=== PATIENT | male | born 1955 | race Caucasian/White ===

== ENCOUNTER 2020-06-10 18:36 | Emergency (ER) | payer OTHER ==
[~2020-06-10 18:36] MED LIST: CALCIUM CHLORIDE 100 MG/ML 10 ML SYRINGE ONE; EPINEPHrine 10 ML SYRINGE (0.1 MG/ML) ONE; SODIUM BICARB 8.4% 50 ML SYR (1 MEQ/ML) ONE
[2020-06-10] MEDS ORDERED: SODIUM CHLORIDE 0.9% 1,000 ML IV ONE (18:45)
[2020-06-10] MEDS ORDERED: NOREPINEPHRINE 4 MG in SODIUM CHLORIDE 0.9% 250 ML IV ONE ×3 (18:50→20:45)
[2020-06-10 18:56] VITALS: TEMP 97
[2020-06-10 19:03] LABS: Basophils # (A) 0.1 k/uL (0-0.2); Basophils % (A) 1 %; Eosinophils % (A) 1 %; HCT 47.1 % (39.0-53.0); HGB 14.4 gm/dL (13.0-17.5); Hypochromasia Marked; Lymphocytes # (A) 2.7 k/uL (1.0-4.8); Lymphocytes % (A) 58 %; MCH 36.3 pg (25.0-35.0); MCHC 30.5 g/dL (31.0-37.0); MCV 118.9 fL (80.0-100.0); Macrocytosis Marked; Mean Platelet Volume 8.3; Monocytes # (A) 0.1 k/uL (0-1.0); Monocytes % (A) 3 %; Neutrophils # (A) 1.6 k/uL (1.3-7.7); Neutrophils % (A) 35 %; Platelet Count 154 k/uL (150-450); RBC 3.96 m/uL (4.30-5.90); RDW 13.6 % (11.5-15.5); WBC 4.6 k/uL (3.8-10.6)
--- NOTE | 2020-06-10 19:18 | XR ---
EXAMINATION TYPE: XR chest 1V portable DATE OF EXAM: 06/10/2020 COMPARISON: NONE HISTORY: Cardiac arrest. Tube placement. TECHNIQUE: Single view FINDINGS: Endotracheal tube is 2.5 cm from the joseph. There is nasogastric tube in the stomach. Ther e is some interstitial infiltrate in atelectasis in the lower lung merida. There is no gross heart fa ilure. Thoracic aorta is atheromatous. Bony thorax is intact. IMPRESSION: Interstitial pulmonary infiltrates and atelectasis. No obvious heart failure. Tubing in f airly good position. There is probably cardiomegaly.
[2020-06-10 19:21] LABS: Partial Thromboplastin Time 34.6 sec (22.0-30.0); Prothrombin Time 10.5 sec (9.0-12.0)
--- NOTE | 2020-06-10 19:21 | ED ---
CPR HPI - General Stated Complaint: Cardiac Arrest Time Seen by Provider: 06/10/20 18:44 Source: EMS Mode of arrival: EMS Limitations: altered mental status - History of Present Illness Initial Comments: Is a 65-year-old male with history of hypertension who presents after cardiac arrest. The patient was reportedly at home with his eating dinner when he suddenly vomited and became unresponsive. EMS was called and revived therefore minutes after the call. They noted that he had no pulses and immediately began CPR. They did achieve Rosc in route after 4 doses of epinephrine and intubation. They did note that the patient had some steak stuck in the back of his throat. On arrival to the emergency department patient lost pulses again and CPR was started. He was given 1 dose of epinephrine, bicarbonate, and calcium gluconate with Rosc. Patient was started on levophed and maintained on the ventilator. - Related Data Home Medications Medication Instructions Recorded Confirmed ALPRAZolam [Xanax] 1 mg PO DAILY 05/07/17 05/11/17 Bisoprolol-Hctz 5-6.25 mg [Ziac 2 each PO BID 05/07/17 05/11/17 5-6.25] lisinopriL [Zestril] 20 mg PO DAILY 05/07/17 05/11/17 Allergies Allergy/AdvReac Type Severity Reaction Status Date / Time venom-honey bee Allergy Severe Anaphylaxis Verified 06/10/20 18:56 [bee venom (honey bee)] venom-wasp [wasp venom] Allergy Severe Anaphylaxis Verified 06/10/20 18:56 latex Allergy Rash/Hives Verified 06/10/20 18:56 elza nuts Allergy Severe Anaphylaxis Uncoded 06/10/20 18:56 Review of Systems ROS Statement: Those systems with pertinent positive or pertinent negative responses have been documented in the HPI. ROS Other: All systems not noted in ROS Statement are negative. Past Medical History Past Medical History: Hypertension Additional Past Medical History / Comment(s): hernia History of Any Multi-Drug Resistant Organisms: None Reported Past Surgical History: Adenoidectomy, Hernia Repair, Tonsillectomy Additional Past Surgical History / Comment(s): COLONOSCOPY Past Anesthesia/Blood Transfusion Reactions: No Reported Reaction Past Psychological History: Anxiety Smoking Status: Unknown if ever smoked Past Alcohol Use History: Occasional Past Drug Use History: None Reported - Past Family History Father Family Medical History: Congestive Heart Failure (CHF) General Exam - General Exam Comments Initial Comments: Constitutional: Unresponsive Head: Normocephalic atraumatic Eyes: no conjunctival injection No scleral icterus pupils are fixed and dilated, no doll's eyes Neck: No JVD Supple Heart: Regular rate rhythm normal S1-S2 no murmurs Lungs: Clear to auscultation and equal bilaterally No wheezing No rales Abdomen: Soft nondistended nontender Extremities: Non edematous DP pulses intact Radial pulses intact Neuro: Unresponsive on the ventilator No focal neurologic deficits Limitations: altered mental status Course Vital Signs 06/10/20 06/10/20 06/10/20 18:36 18:40 18:45 Temperature 97 F L Pulse Rate 78 89 79 Respiratory 12 13 Rate Blood Pressure 53/39 105/78 69/40 O2 Sat by Pulse 98 97 Oximetry 06/10/20 06/10/20 06/10/20 18:50 19:00 19:10 Temperature Pulse Rate 94 83 86 Respiratory Rate Blood Pressure 101/57 62/45 62/45 O2 Sat by Pulse 96 Oximetry 06/10/20 06/10/20 06/10/20 19:33 19:41 19:44 Temperature Pulse Rate 86 89 82 Respiratory 16 20 20 Rate Blood Pressure 81/54 99/76 108/54 O2 Sat by Pulse 96 97 97 Oximetry 06/10/20 06/10/20 06/10/20 20:00 20:59 21:29 Temperature Pulse Rate 67 76 71 Respiratory 24 18 20 Rate Blood Pressure 98/84 66/50 64/41 O2 Sat by Pulse 97 97 95 Oximetry 06/10/20 21:55 Temperature Pulse Rate 0 L Respiratory 0 L Rate Blood Pressure 79/46 O2 Sat by Pulse 0 L Oximetry - Reevaluation(s) Reevaluation #1: Spoke with and stated that patient was not responsive and has fixed dilated pupils and showing signs of severe brain injury. She agreed to make him DNR in the event that he codes again. 06/10/20 19:20 Reevaluation #2: Pt currently on 1mcg/kg of Levo. BP in low 100s. Repeat ekg looks improved. Pt does attempt to initiate breath at times but has no gag. No vestubloocular reflex. Pupils still fixed and dilated. I told about patient's prognosis and she stated he would not want to live on a ventilator however since he was sh owing some sign of improvement she wanted to leave him on ventilator and levo until morning. Discussed lines and she stated she did not want to escalate care at this time. The patient is still DNR if he has another arrest. 06/10/20 19:56 Reevaluation #3: INitial EKG done shows HR of [address] segement depression and global ischemic changes. 2nd EKG showing RBBB and sinus tachycardia. Again with global ischemic changes. EKG done at 1951 showing sinus rhythm with rate in the 80s. No abrnoaml ST segment changes or TWI. 06/10/20 20:01 Reevaluation #4: 06/10/20 20:[address] Arellano about patient and discussed plan of care with him. No escalation of care and DNR. Pt attempting more frequent breaths but still unresponsive. Reevaluation #5: 06/10/20 20:[address] Montiel about patient and he stated likely the patient would not do well. Stated he would speak with again about comfort measures. I called the 's sister who is on the way to the 's house now and will call back. Medical Decision Making - Medical Decision Making 2104 Spoke with wifes sister again who stated that they agreed and wanted the patient comfort measures only. The patient was extubated and levophed was stopped. He had agonal respirations only. Dr. Arellano updated. 2158 Called to room because patient was noted to be in asystole. Pupils fixed and dilated. Absent heart sounds. No response to noxious stimuli. Pt pronounced at 2200. Family updated. This is a 65-year-old male who presented for cardiac arrest. Ross Was obtained and the patient was maxed on Levaquin 5. I had multiple discussions with the and initially we agreed to keep him on the ventilator and levo fed until morning to see if he gained any brain function however given his multiple abnormal lab findings, persistent absent brainstem reflexes, low blood pressure despite levo fed I had another discussion with her and she agreed with comfort measures. The patient will have withdrawal of care at this time and be made comfortable. I did speak with Dr. Arellano earlier however this was prior to patient being made comfort measures. Dr. Arellano was updated. Pt ultimated expir ed at 2200. - Lab Data Result diagrams: 06/10/20 18:24 06/10/20 18:24 Lab Results 06/10/20 06/10/20 06/10/20 Range/Units 18:24 18:24 18:24 WBC 4.6 (3.8-10.6) k/uL RBC 3.96 L (4.30-5.90) m/uL Hgb 14.4 (13.0-17.5) gm/dL Hct 47.1 (39.0-53.0) % MCV 118.9 H (80.0-100.0) fL MCH 36.3 H (25.0-35.0) pg MCHC 30.5 L (31.0-37.0) g/dL RDW 13.6 (11.5-15.5) % Plt Count 154 (150-450) k/uL MPV 8.3 Neutrophils % 35 % Lymphocytes % 58 % Monocytes % 3 % Eosinophils % 1 % Basophils % 1 % Neutrophils # 1.6 (1.3-7.7) k/uL Lymphocytes # 2.7 (1.0-4.8) k/uL Monocytes # 0.1 (0-1.0) k/uL Eosinophils # 0.0 (0-0.7) k/uL Basophils # 0.1 (0-0.2) k/uL Hypochromasia Marked Macrocytosis Marked A PT 10.5 (9.0-12.0) sec INR 1.0 (<1.2) APTT 34.6 H (22.0-30.0) sec Sample Site ABG pH (7.35-7.45) ABG pCO2 (35-45) mmHg ABG pO2 (83-108) mmHg ABG HCO3 (21-25) mmol/L ABG Total CO2 (19-24) mmol/L ABG O2 Saturation (94-97) % ABG Base Excess mmol/L Niko Test FiO2 % Sodium (137-145) mmol/L Potassium (3.5-5.1) mmol/L Chloride (98-107) mmol/L Carbon Dioxide (22-30) mmol/L Anion Gap mmol/L BUN (9-20) mg/dL Creatinine (0.66-1.25) mg/dL Est GFR (CKD-EPI)AfAm (>60 ml/min/1.73 sqM) Est GFR (CKD-EPI)NonAf (>60 ml/min/1.73 sqM) Glucose (74-99) mg/dL Lactic Ac Sepsis Rflx Plasma Lactic Acid Victorino (0.7-2.0) mmol/L Calcium (8.4-10.2) mg/dL Magnesium (1.6-2.3) mg/dL Total Bilirubin (0.2-1.3) mg/dL AST (17-59) U/L ALT (4-49) U/L Alkaline Phosphatase (38-126) U/L Troponin I (0.000-0.034) ng/mL NT-Pro-B Natriuret Pep pg/mL Total Protein (6.3-8.2) g/dL Albumin (3.5-5.0) g/dL Lipase (23-300) U/L Urine Color Urine Appearance (Clear) Urine pH (5.0-8.0) Ur Specific [place] (1.001-1.035) Urine Protein (Negative) Urine Glucose (UA) (Negative) Urine Ketones (Negative) Urine Blood (Negative) Urine Nitrite (Negative) Urine Bilirubin (Negative) Urine Urobilinogen (<2.0) mg/dL Ur Leukocyte Esterase (Negative) Urine RBC (0-5) /hpf Urine WBC (0-5) /hpf Amorphous Sediment (None) /hpf Urine Bacteria (None) /hpf Hyaline Casts (0-2) /lpf Blood Type A Positive Blood Type Confirm Blood Type Recheck No Previous Record Bld Type Recheck Status CABO Indicated Antibody Screen NEGATIVE Spec Expiration Date 06/13/2020232306/10/20 06/10/20 06/10/20 Range/Units 18:24 18:24 18:24 WBC (3.8-10.6) k/uL RBC (4.30-5.90) m/uL Hgb (13.0-17.5) gm/dL Hct (39.0-53.0) % MCV (80.0-100.0) fL MCH (25.0-35.0) pg MCHC (31.0-37.0) g/dL RDW (11.5-15.5) % Plt Count (150-450) k/uL MPV Neutrophils % % Lymphocytes % % Monocytes % % Eosinophils % % Basophils % % Neutrophils # (1.3-7.7) k/uL Lymphocytes # (1.0-4.8) k/uL Monocytes # (0-1.0) k/uL Eosinophils # (0-0.7) k/uL Basophils # (0-0.2) k/uL Hypochromasia Macrocytosis PT (9.0-12.0) sec INR (<1.2) APTT (22.0-30.0) sec Sample Site ABG pH (7.35-7.45) ABG pCO2 (35-45) mmHg ABG pO2 (83-108) mmHg ABG HCO3 (21-25) mmol/L ABG Total CO2 (19-24) mmol/L ABG O2 Saturation (94-97) % ABG Base Excess mmol/L Niko Test FiO2 % Sodium 138 (137-145) mmol/L Potassium 4.3 (3.5-5.1) mmol/L Chloride 110 H (98-107) mmol/L Carbon Dioxide 10 L (22-30) mmol/L Anion Gap 18 mmol/L BUN 38 H (9-20) mg/dL Creatinine 2.31 H (0.66-1.25) mg/dL Est GFR (CKD-EPI)AfAm 33 (>60 ml/min/1.73 sqM) Est GFR (CKD-EPI)NonAf 28 (>60 ml/min/1.73 sqM) Glucose 219 H (74-99) mg/dL Lactic Ac Sepsis Rflx Plasma Lactic Acid Victorino 11.9 H* (0.7-2.0) mmol/L Calcium 8.1 L (8.4-10.2) mg/dL Magnesium 1.9 (1.6-2.3) mg/dL Total Bilirubin 0.6 (0.2-1.3) mg/dL AST 944 H (17-59) U/L ALT 386 H (4-49) U/L Alkaline Phosphatase 58 (38-126) U/L Troponin I (0.000-0.034) ng/mL NT-Pro-B Natriuret Pep pg/mL Total Protein 6.0 L (6.3-8.2) g/dL Albumin 3.2 L (3.5-5.0) g/dL Lipase 496 H (23-300) U/L Urine Color Light Yellow Urine Appearance Cloudy (Clear) Urine pH 6.0 (5.0-8.0) Ur Specific [place] 1.008 (1.001-1.035) Urine Protein Negative (Negative) Urine Glucose (UA) Negative (Negative) Urine Ketones Negative (Negative) Urine Blood Trace H (Negative) Urine Nitrite Negative (Negative) Urine Bilirubin Negative (Negative) Urine Urobilinogen <2.0 (<2.0) mg/dL Ur Leukocyte Esterase Small H (Negative) Urine RBC 4 (0-5) /hpf Urine WBC 3 (0-5) /hpf Amorphous Sediment Rare H (None) /hpf Urine Bacteria Rare H (None) /hpf Hyaline Casts 1 (0-2) /lpf Blood Type Blood Type Confirm Blood Type Recheck Bld Type Recheck Status Antibody Screen Spec Expiration Date 06/10/20 06/10/20 06/10/20 Range/Units 18:24 18:24 19:39 WBC (3.8-10.6) k/uL RBC (4.30-5.90) m/uL Hgb (13.0-17.5) gm/dL Hct (39.0-53.0) % MCV (80.0-100.0) fL MCH (25.0-35.0) pg MCHC (31.0-37.0) g/dL RDW (11.5-15.5) % Plt Count (150-450) k/uL MPV Neutrophils % % Lymphocytes % % Monocytes % % Eosinophils % % Basophils % % Neutrophils # (1.3-7.7) k/uL Lymphocytes # (1.0-4.8) k/uL Monocytes # (0-1.0) k/uL Eosinophils # (0-0.7) k/uL Basophils # (0-0.2) k/uL Hypochromasia Macrocytosis PT (9.0-12.0) sec INR (<1.2) APTT (22.0-30.0) sec Sample Site ABG pH (7.35-7.45) ABG pCO2 (35-45) mmHg ABG pO2 (83-108) mmHg ABG HCO3 (21-25) mmol/L ABG Total CO2 (19-24) mmol/L ABG O2 Saturation (94-97) % ABG Base Excess mmol/L Niko Test FiO2 % Sodium (137-145) mmol/L Potassium (3.5-5.1) mmol/L Chloride (98-107) mmol/L Carbon Dioxide (22-30) mmol/L Anion Gap mmol/L BUN (9-20) mg/dL Creatinine (0.66-1.25) mg/dL Est GFR (CKD-EPI)AfAm (>60 ml/min/1.73 sqM) Est GFR (CKD-EPI)NonAf (>60 ml/min/1.73 sqM) Glucose (74-99) mg/dL Lactic Ac Sepsis Rflx Y Plasma Lactic Acid Victorino (0.7-2.0) mmol/L Calcium (8.4-10.2) mg/dL Magnesium (1.6-2.3) mg/dL Total Bilirubin (0.2-1.3) mg/dL AST (17-59) U/L ALT (4-49) U/L Alkaline Phosphatase (38-126) U/L Troponin I 0.024 (0.000-0.034) ng/mL NT-Pro-B Natriuret Pep 212 pg/mL Total Protein (6.3-8.2) g/dL Albumin (3.5-5.0) g/dL Lipase (23-300) U/L Urine Color Urine Appearance (Clear) Urine pH (5.0-8.0) Ur Specific [place] (1.001-1.035) Urine Protein (Negative) Urine Glucose (UA) (Negative) Urine Ketones (Negative) Urine Blood (Negative) Urine Nitrite (Negative) Urine Bilirubin (Negative) Urine Urobilinogen (<2.0) mg/dL Ur Leukocyte Esterase (Negative) Urine RBC (0-5) /hpf Urine WBC (0-5) /hpf Amorphous Sediment (None) /hpf Urine Bacteria (None) /hpf Hyaline Casts (0-2) /lpf Blood Type Blood Type Confirm Blood Type Recheck Bld Type Recheck Status Antibody Screen Spec Expiration Date 06/10/20 06/10/20 Range/Units 20:17 20:26 WBC (3.8-10.6) k/uL RBC (4.30-5.90) m/uL Hgb (13.0-17.5) gm/dL Hct (39.0-53.0) % MCV (80.0-100.0) fL MCH (25.0-35.0) pg MCHC (31.0-37.0) g/dL RDW (11.5-15.5) % Plt Count (150-450) k/uL MPV Neutrophils % % Lymphocytes % % Monocytes % % Eosinophils % % Basophils % % Neutrophils # (1.3-7.7) k/uL Lymphocytes # (1.0-4.8) k/uL Monocytes # (0-1.0) k/uL Eosinophils # (0-0.7) k/uL Basophils # (0-0.2) k/uL Hypochromasia Macrocytosis PT (9.0-12.0) sec INR (<1.2) APTT (22.0-30.0) sec Sample Site rrad ABG pH 6.96 L* (7.35-7.45) ABG pCO2 34 L (35-45) mmHg ABG pO2 >400 H (83-108) mmHg ABG HCO3 8 L* (21-25) mmol/L ABG Total CO2 9 L (19-24) mmol/L ABG O2 Saturation 99.9 H (94-97) % ABG Base Excess -24.3 mmol/L Niko Test Yes FiO2 100 % Sodium (137-145) mmol/L Potassium (3.5-5.1) mmol/L Chloride (98-107) mmol/L Carbon Dioxide (22-30) mmol/L Anion Gap mmol/L BUN (9-20) mg/dL Creatinine (0.66-1.25) mg/dL Est GFR (CKD-EPI)AfAm (>60 ml/min/1.73 sqM) Est GFR (CKD-EPI)NonAf (>60 ml/min/1.73 sqM) Glucose (74-99) mg/dL Lactic Ac Sepsis Rflx Plasma Lactic Acid Victorino (0.7-2.0) mmol/L Calcium (8.4-10.2) mg/dL Magnesium (1.6-2.3) mg/dL Total Bilirubin (0.2-1.3) mg/dL AST (17-59) U/L ALT (4-49) U/L Alkaline Phosphatase (38-126) U/L Troponin I (0.000-0.034) ng/mL NT-Pro-B Natriuret Pep pg/mL Total Protein (6.3-8.2) g/dL Albumin (3.5-5.0) g/dL Lipase (23-300) U/L Urine Color Urine Appearance (Clear) Urine pH (5.0-8.0) Ur Specific [place] (1.001-1.035) Urine Protein (Negative) Urine Glucose (UA) (Negative) Urine Ketones (Negative) Urine Blood (Negative) Urine Nitrite (Negative) Urine Bilirubin (Negative) Urine Urobilinogen (<2.0) mg/dL Ur Leukocyte Esterase (Negative) Urine RBC (0-5) /hpf Urine WBC (0-5) /hpf Amorphous Sediment (None) /hpf Urine Bacteria (None) /hpf Hyaline Casts (0-2) /lpf Blood Type Blood Type Confirm A Positive Blood Type Recheck Bld Type Recheck Status Antibody Screen Spec Expiration Date Disposition Clinical Impression: Cardiopulmonary arrest Disposition: Referrals: Skylar Ohara MD [STAFF PHYSICIAN] - 1-2 days Preliminary Cause of : Cardiac arrest
[2020-06-10 19:28] LABS: Albumin 3.2 g/dL (3.5-5.0); Calcium 8.1 mg/dL (8.4-10.2); Magnesium 1.9 mg/dL (1.6-2.3); Potassium 4.3 mmol/L (3.5-5.1); Total Bilirubin 0.6 mg/dL (0.2-1.3)
[2020-06-10 19:30] LABS: Amorphous Sediment,Urine Rare /hpf; Appearance,Urine Cloudy (Clear); Bacteria,Urine Rare /hpf; Bilirubin,Urine Negative (Negative); Blood,Urine Trace (Negative); Color,Urine Light Yellow; Glucose,Urine (UA) Negative (Negative); Hyaline Casts,Urine 1 /lpf (0-2); Ketones,Urine Negative (Negative); Leukocyte Esterase,Urine Small (Negative); Nitrite,Urine Negative (Negative); Protein,Urine Negative (Negative); RBC,Urine 4 /hpf (0-5); Specific Gravity,Urine 1.008 (1.001-1.035); Urobilinogen,Urine <2.0 mg/dL (<2.0); WBC,Urine 3 /hpf (0-5)
[2020-06-10] MEDS ORDERED: SODIUM CHLORIDE 0.9% 1,000 ML IV SCH (20:15)
[2020-06-10 20:20] LABS: ABG Base Excess -24.3 mmol/L; ABG Oxygen Saturation 99.9 % (94-97); ABG PCO2 34 mmHg (35-45); ABG PO2 >400 mmHg (83-108); ABG TCO2 9 mmol/L (19-24); Allen Test Performed? Yes
[2020-06-10 20:25] LABS: ABG PH 6.96 (7.35-7.45)
--- NOTE | 2020-06-10 21:02 | CT ---
EXAMINATION TYPE: CT brain wo con DATE OF EXAM: 06/10/2020 HISTORY: ams, cardiac arrest CT DLP: 2608.4 mGycm. Automated Exposure Control for Dose Reduction was Utilized. TECHNIQUE: CT scan of the head is performed without contrast. COMPARISON: None. FINDINGS: There is no acute intracranial hemorrhage or midline shift identified. There is diffuse v entricular and sulcal prominence consistent with diffuse age-related cerebral atrophy. There is low- attenuation in the periventricular white matter consistent with chronic small vessel ischemic change. The globes are intact and the visualized sinuses are clear. Nasogastric and endogastric tubes par tially visualized. IMPRESSION: No acute intracranial hemorrhage or midline shift. There is mild diffuse age-related ce rebral atrophy and chronic small vessel ischemic change noted.
[2020-06-10 21:59] VITALS: BP 79/46; PULSE 0; RESP 0
[2020-06-15 08:00] LABS: ABG HCO3 8 mmol/L (21-25)
== END 2020-06-10 23:42 | disposition expired ==
LOC: EC 18:36
DX: I46.9 Cardiac arrest, cause unspecified (principal); I45.10 Unspecified right bundle-branch block; I10 Essential (primary) hypertension; F41.9 Anxiety disorder, unspecified; Z79.899 Other long term (current) drug therapy; Z66 Do not resuscitate; Z91.030 Bee allergy status; Z91.040 Latex allergy status; Z91.010 Allergy to peanuts
CPT/HCPCS: 36415; 36600; 93005; 86900; 86901; 83880; 80053; 82805; 83605; 83690; 83735; 84484; 85025; 85610; 85730; 86850; 81001; 71045; 70450; 96365; 96366 ×2; 99285; J0171; 94002